=== PATIENT | female | born 1990 | race American Indian/Alaskan Native ===

== ENCOUNTER 2019-03-10 08:20 | Emergency (ER) | payer BC, MEDICAID ==
[2019-03-10 08:31] VITALS: BP 159/92
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
== END 2019-03-10 10:23 | disposition home or self-care (01) ==
LOC: ED 08:20
DX: M79.10 Myalgia, unspecified site (principal); F12.10 Cannabis abuse, uncomplicated
CPT/HCPCS: 99281